=== PATIENT | female | born 1990 | race Caucasian/White ===

== ENCOUNTER 2021-11-05 09:12 | Emergency (ER) | payer MEDICAID ==
[2021-11-05 09:39] VITALS: BP 130/73
== END 2021-11-06 02:35 | disposition left against medical advice (07) ==
LOC: ED 09:12
DX: Z00.00 Encounter for general adult medical examination without abnormal findings (principal); Z53.21 Procedure and treatment not carried out due to patient leaving prior to being seen by health care provider